=== PATIENT | male | born 1950 | race Caucasian/White ===

== ENCOUNTER 2024-12-16 07:00 | Day surgery (SDC) | payer OTHER ==
[~2024-12-16] VITALS: Ht 175.3 cm; Wt 91.5 kg
[~2024-12-16 07:00] MED LIST: Balanced Salt Epinephrine Irrigation Solution 500 mL IR PRN; Gentamicin Ophth IR Soln 4 MG/0.4 ML SYR IR SCH; Lidocaine HCl/Pf 1% 5 ML VIAL ONE; Lidocaine HCl/Pf 1% 5 ML VIAL XX SCH; NS 500 ML IV ONE; PHENYLEPHRINE\\TROPICAMIDE\\TETRACAINE OPHTHALMIC DILATING SOLN RIGHTEYE PRN; Povidone-Iodine 450 DROP/30 ML Solution ONE; Povidone-Iodine 450 DROP/30 ML Solution RIGHTEYE SCH; Tetracaine HCl/Pf 0.5% Opth Soln 4 ml ONE; Vancomycin Ophth IR Soln 10 MG/0.2 ML SYR IR SCH
[2024-12-16] MEDS ORDERED: LISI10 PO (07:20)
[2024-12-16] MEDS ORDERED: ASPI81CH PO (07:21)
[2024-12-16] MEDS ORDERED: ATOR40TA PO (07:21)
[2024-12-16] MEDS ORDERED: Midazolam HCl 1MG / ML 2ML Vial ONE (07:25)
[2024-12-16] MEDS ORDERED: FentaNYL Citrate 50 MCG/ML 2 ML Injection ONE (07:25)
[2024-12-16] MEDS ORDERED: NS 500 ML IV ONE (07:30)
--- NOTE | 2024-12-16 07:30 | NUR ---
12/16/24 0730 Keyla Nash CALL LIGHT WITHION REACH. TETRACINE IN AT 0722 IN RIGHT EYE AND PLEDGETT IN AT 0723
[2024-12-16 08:34] VITALS: BP 146/78
== END 2024-12-16 08:56 | disposition home or self-care (01) ==
LOC: ORSCSDS 07:00
PROVIDERS: Ophthalmology
PROC: 08RJ3JZ Replacement of Right Lens with Synthetic Substitute, Percutaneous Approach (ICD-10-PCS; principal; 2024-12-16 08:00)
DX: H25.11 Age-related nuclear cataract, right eye (principal); I10 Essential (primary) hypertension; G47.33 Obstructive sleep apnea (adult) (pediatric); N40.0 Benign prostatic hyperplasia without lower urinary tract symptoms; Z79.899 Other long term (current) drug therapy
CPT/HCPCS: J2003; J2250; J3010; J7040; V2632